=== PATIENT | female | born 1940 | race Caucasian/White ===

== ENCOUNTER → 2016-12-28 | Outpatient (CLI) | payer MEDICARE, OTHER ==
[~2016-12-28] MED LIST: ATOR20TA9 PO; CHOL200024 PO; MELO7.5T31 PO; METF-688 PO; PIOG30TA4 PO; VALS1TAB24 PO
[2016-12-28 10:33] LABS: HEMATOCRIT 35.7 % (34.6-47.8); HEMOGLOBIN 11.8 g/dL (11.7-16.4); WHITE BLOOD COUNT 10.4 x10^3/uL (3.4-10)
[2016-12-28 10:44] LABS: ASPARTATE AMINO TRANSFERASE 10 U/L (15-37); BLOOD UREA NITROGEN 34 mg/dL (7-18)
[2016-12-28 11:19] LABS: HIV 1&2 ANTIBODY SCREEN Nonreactive (Nonreactive); HIV-1 p24 ANTIGEN Nonreactive (Nonreactive)
== END | disposition home or self-care (01) ==
LOC: STAR 09:20
PROVIDERS: ATTEND Orthopaedic Surgery
DX: Z01.818 Encounter for other preprocedural examination (principal); M17.11 Unilateral primary osteoarthritis, right knee; E11.9 Type 2 diabetes mellitus without complications; R79.1 Abnormal coagulation profile
CPT/HCPCS: 36415; 80053; 83036; 85025; 85610; 85730; 86703; 87081; 87147; 87899; 93005; G0435

== ENCOUNTER 2017-01-07 09:14 | Inpatient (IN) | payer MEDICARE, OTHER ==
[~2017-01-07] VITALS: Ht 157.5 cm; Wt 91.0 kg
[~2017-01-07 09:14] MED LIST changes: +EPINEPHRINE 1 MG/ML, 1ML ONE; +KETOROLAC 60 MG/2 ML ONE; +MORPHINE SULFATE 4 MG/ML, 1ML ONE; +SODIUM CHLORIDE 0.9% 50 ML ONE; +TRANEXAMIC ACID 100 MG/ML, 10ML ONE
[2017-01-07] MEDS ORDERED: VANCOMYCIN PER PHARMACY MC PRN (09:30)
[2017-01-07] MEDS ORDERED: GABAPENTIN 300 MG CAPSULE PO ONE (09:57)
[2017-01-07] MEDS ORDERED: LACTATED RINGERS 1,000 ML IV SCH (09:57)
[2017-01-07] MEDS ORDERED: OxyconTIN ER 10 MG TAB.ER PO ONE (09:57)
[2017-01-07] MEDS ORDERED: ACETAMINOPHEN 500 MG TABLET PO ONE (10:00)
[2017-01-07] MEDS ORDERED: VANCOMYCIN 1,700 MG in SODIUM CHLORIDE 0.9% 250 ML IV ONE (10:00)
[2017-01-07 10:08] VITALS: BP 137/81
[2017-01-07] MEDS ORDERED: GABAPENTIN 300 MG CAPSULE ONE (10:35)
[2017-01-07] MEDS ORDERED: MIDAZOLAM 1 MG/ML, 2ML ONE (10:56)
[2017-01-07] MEDS ORDERED: FENTANYL PF 100 MCG/2ML ONE (10:56)
[2017-01-07] MEDS ORDERED: CEFAZOLIN 1,000 MG ONE ×2 (10:57)
[2017-01-07] MEDS ORDERED: PROPOFOL 10 MG/ML, 20ML ONE (10:58)
[2017-01-07] MEDS ORDERED: ROCURONIUM 10 MG/ML ONE (10:59)
[2017-01-07] MEDS ORDERED: BUPIVACAINE/PF 0.25% ONE (11:19)
[2017-01-07] MEDS ORDERED: KETAMINE 10 MG/ML, 20ML ONE (12:28)
[2017-01-07] MEDS ORDERED: PHENYLEPHRINE 10 MG/ML ONE (12:28)
[2017-01-07] MEDS ORDERED: ONDANSETRON 2MG/ML, 2ML IVPush PRN (13:00)
[2017-01-07] MEDS ORDERED: ACETAMINOPHEN 325 MG TABLET PO PRN (13:00)
[2017-01-07] MEDS ORDERED: hydrALAzine 20 MG/ML, 1ML IV PRN (13:00)
[2017-01-07] MEDS ORDERED: OXYcodone 5 MG/5 ML ORAL.SOL UDC PO PRN (13:00)
[2017-01-07] MEDS ORDERED: FENTANYL PF 100 MCG/2ML IV PRN (13:00)
[2017-01-07] MEDS ORDERED: MEPERIDINE/PF 25MG/0.5ML IVPush PRN (13:00)
[2017-01-07] MEDS ORDERED: LABETALOL 5MG/ML, 20ML IV PRN (13:00)
[2017-01-07] MEDS ORDERED: PROMETHAZINE 25 MG/ML, 1ML IV PRN (13:00)
[2017-01-07] MEDS ORDERED: HYDROmorphone 1 MG/ML, 1ML IV PRN ×2 (13:00→14:30)
[2017-01-07] MEDS ORDERED: ONDANSETRON 2MG/ML, 2ML ONE ×2 (13:48)
[2017-01-07] MEDS ORDERED: ALUMINUM/MAG/SIMETHICONE 30 ML UDC PO PRN (14:30)
[2017-01-07] MEDS ORDERED: DEXTROSE 4 GM TAB.CHEW PO PRN (14:30)
[2017-01-07] MEDS ORDERED: DIAZEPAM 5 MG TABLET PO PRN (14:30)
[2017-01-07] MEDS ORDERED: TRANEXAMIC ACID 1,000 MG in SODIUM CHLORIDE 0.9% 100 ML IVPB ONE (14:30)
[2017-01-07] MEDS ORDERED: DEXTROSE 50%, 50ML SYRINGE IVPush PRN (14:30)
[2017-01-07] MEDS ORDERED: ACETAMINOPHEN 650 MG/20.3 ML UDC PO PRN (14:30)
[2017-01-07] MEDS ORDERED: GLUCAGON 1 MG IM PRN (14:30)
[2017-01-07] MEDS ORDERED: OXYcodone IR 5MG TABLET PO PRN (14:30)
[2017-01-07] MEDS ORDERED: MAGNESIUM HYDROXIDE 8%, 30ML UDC PO PRN (14:30)
[2017-01-07] MEDS ORDERED: ONDANSETRON 4 MG TABLET PO PRN (14:30)
[2017-01-07] MEDS ORDERED: SENNA/DOCUSATE TABLET PO PRN (14:30)
[2017-01-07] MEDS ORDERED: DIPHENHYDRAMINE 25 MG CAPSULE PO PRN (14:30)
[2017-01-07] MEDS ORDERED: ONDANSETRON 2MG/ML, 2ML IV PRN (14:30)
[2017-01-07] MEDS ORDERED: BISACODYL 10 MG SUPP PR PRN (14:30)
[2017-01-07] MEDS: INSULIN REGULAR 100 UNITS/ML, 3ML VIAL SQ-INSULIN SCH ×2 (16:00→21:32)
[2017-01-07] MEDS: NS + 20MEQ KCL 1,000 ML IV SCH (17:23)
[2017-01-07] MEDS: metFORMIN 500 MG TABLET PO SCH (17:23)
[2017-01-07 20:03] VITALS: BP 101/45
[2017-01-07] MEDS: DOCUSATE 100 MG CAPSULE PO SCH (20:43)
[2017-01-07] MEDS: CEFAZOLIN PMX 1GM/50ML 50 ML IVPB SCH (20:43)
[2017-01-07] MEDS ORDERED: ATORVASTATIN 20 MG TABLET PO SCH (21:00)
[2017-01-07] MEDS: SODIUM CHLORIDE FLUSH 10ML SYR IVF SCH (21:33)
[2017-01-08 00:09] VITALS: BP 103/44
[2017-01-08] MEDS: NS + 20MEQ KCL 1,000 ML IV SCH ×2 (01:41→12:00)
[2017-01-08 04:18] VITALS: BP 102/49
[2017-01-08] MEDS: CEFAZOLIN PMX 1GM/50ML 50 ML IVPB SCH (04:33)
[2017-01-08 05:10] LABS: HEMATOCRIT 29.4 % (34.6-47.8)
[2017-01-08] MEDS: INSULIN REGULAR 100 UNITS/ML, 3ML VIAL SQ-INSULIN SCH ×2 (07:00→11:34)
[2017-01-08 07:18] VITALS: BP 102/45
[2017-01-08] MEDS ORDERED: FLU VACC QS2017-18 (36MOS+) UP/PF 0.5 ML IM-VACC ONE (08:30)
[2017-01-08] MEDS ORDERED: HYDROCHLOROTHIAZIDE 12.5 MG CAPSULE PO SCH (09:00)
[2017-01-08] MEDS ORDERED: PIOGLITAZONE 15 MG TABLET PO SCH (09:00)
[2017-01-08] MEDS ORDERED: TAMSULOSIN 0.4 MG CAP.ER.24H PO SCH (09:00)
[2017-01-08] MEDS ORDERED: VALSARTAN 160 MG TABLET PO SCH (09:00)
[2017-01-08] MEDS ORDERED: CHOLECALCIFEROL 1,000 UNIT TABLET PO SCH (09:00)
[2017-01-08] MEDS ORDERED: ACETAMINOPHEN 325 MG TABLET ONE (09:05)
[2017-01-08] MEDS: DOCUSATE 100 MG CAPSULE PO SCH (09:22)
[2017-01-08] MEDS: SODIUM CHLORIDE FLUSH 10ML SYR IVF SCH (09:22)
[2017-01-08] MEDS: metFORMIN 500 MG TABLET PO SCH (09:23)
[2017-01-08 13:20] VITALS: BP 92/55
[2017-01-08] MEDS ORDERED: KETOROLAC 30 MG/1 ML IV SCH (14:30)
[2017-01-08] MEDS ORDERED: OXYC5CAP2 PO (15:55)
[2017-01-08] MEDS ORDERED: TRAM50TA2 PO (15:56)
[2017-01-08] MEDS ORDERED: DIAZ5TAB PO (15:56)
[2017-01-08] MEDS ORDERED: ONDA4TAB10 PO (15:57)
[2017-01-08] MEDS ORDERED: CELE200C PO (15:57)
[2017-01-08] MEDS ORDERED: ASPI-621 PO (15:58)
[2017-01-08] MEDS ORDERED: ASPIRIN 81 MG TABLET EC PO SCH (18:00)
== END 2017-01-08 16:09 | disposition home or self-care (01) | DRG 470 ==
LOC: ORIP 09:14 → 4NOR 15:29 → DCLOUNGE 01-08 15:53
PROVIDERS: ADMIT Orthopaedic Surgery; ATTEND Orthopaedic Surgery
PROC: 0SRC069 Replacement of Right Knee Joint with Oxidized Zirconium on Polyethylene Synthetic Substitute, Cemented, Open Approach (ICD-10-PCS; principal; 2017-01-07 11:30)
DX: M17.11 Unilateral primary osteoarthritis, right knee (principal)
CPT/HCPCS: 36415; 82962; 85014; 85018; 90686; C1713; J0171; J0690; J1815; J1885; J2250; J2405; J2704; J3010; J3370; J3480; J3490; C1776; J2370; J7050; J7120

== ENCOUNTER → 2017-07-30 | Outpatient (CLI) | payer MEDICARE, OTHER ==
[~2017-07-30] MED LIST changes: +ACID1TAB7 PO; +ASPI-496 PO; +ASPI-621 PO; +CELE200C PO; +DIAZ5TAB PO; +ENOX40SY4 SQ; -EPINEPHRINE 1 MG/ML, 1ML ONE; +FURO-93 PO; +FURO40TA6 PO; +GLIM1TAB2 PO; +ISOS30TA8 PO; -KETOROLAC 60 MG/2 ML ONE; +METO25TA35 PO; -MORPHINE SULFATE 4 MG/ML, 1ML ONE; +ONDA4TAB10 PO; +OXYC5CAP2 PO; +POTA20PA25 PO; +POTA20TA14 PO; -SODIUM CHLORIDE 0.9% 50 ML ONE; +TRAM50TA2 PO; -TRANEXAMIC ACID 100 MG/ML, 10ML ONE; +VALS160T3 PO
== END ==
LOC: CFH 10:47
PROVIDERS: ATTEND Nurse Practitioner
DX: Z13.820 Encounter for screening for osteoporosis (principal); Z12.31 Encounter for screening mammogram for malignant neoplasm of breast; N95.8 Other specified menopausal and perimenopausal disorders; Z80.3 Family history of malignant neoplasm of breast
CPT/HCPCS: 77080; 77067

== ENCOUNTER → 2020-01-21 | Outpatient (CLI) | payer MEDICARE, OTHER ==
[~2020-01-21] MED LIST changes: -ASPI-621 PO; +ASPI81TA45 PO; +ATOR20TA37 PO; -ATOR20TA9 PO; -GLIM1TAB2 PO; +GLIM1TAB7 PO; -PIOG30TA4 PO; +PIOG30TA68 PO; -VALS1TAB24 PO; +VALS1TAB25 PO
== END | disposition home or self-care (01) ==
LOC: CFH 07:36
PROVIDERS: ATTEND Internal Medicine Cardiovascular Disease
DX: I08.8 Other rheumatic multiple valve diseases (principal); E11.9 Type 2 diabetes mellitus without complications; E78.5 Hyperlipidemia, unspecified; I25.2 Old myocardial infarction; I11.9 Hypertensive heart disease without heart failure
CPT/HCPCS: 93306

== ENCOUNTER → 2020-04-25 | Outpatient (CLI) | payer MEDICARE, OTHER | END | disposition home or self-care (01) | LOC: CFH 10:55 | PROVIDERS: ATTEND Licensed Practical Nurse | DX: Z12.31 Encounter for screening mammogram for malignant neoplasm of breast (principal); M81.0 Age-related osteoporosis without current pathological fracture; N95.8 Other specified menopausal and perimenopausal disorders | CPT/HCPCS: 77063; 77067; 77080 ==

== ENCOUNTER 2020-06-17 11:57 | Outpatient (CLI) | payer MEDICARE, OTHER ==
[2020-06-17] MEDS ORDERED: FENTANYL PF 100 MCG/2ML ONE (13:30)
[2020-06-17] MEDS ORDERED: MIDAZOLAM 1 MG/ML, 5ML ONE (13:30)
== END 2020-06-17 23:59 | disposition home or self-care (01) ==
LOC: RAD 11:57
PROVIDERS: ATTEND Physician Assistant Surgical
DX: M50.123 Cervical disc disorder at C6-C7 level with radiculopathy (principal); M25.78 Osteophyte, vertebrae; I10 Essential (primary) hypertension; E11.9 Type 2 diabetes mellitus without complications; I25.2 Old myocardial infarction; M75.42 Impingement syndrome of left shoulder; M75.41 Impingement syndrome of right shoulder; M19.90 Unspecified osteoarthritis, unspecified site; Z79.82 Long term (current) use of aspirin; Z79.84 Long term (current) use of oral hypoglycemic drugs; Z79.899 Other long term (current) drug therapy; Z88.5 Allergy status to narcotic agent; Z91.030 Bee allergy status
CPT/HCPCS: 72141; 99156; 99157; J2250; J3010